=== PATIENT | female | born 1985 | race Caucasian/White ===

== ENCOUNTER 2016-09-29 17:00 | Inpatient (IN) | payer BC ==
[2016-09-29] MEDS ORDERED: LR 500 ML IV PRN (18:27)
[2016-09-29] MEDS ORDERED: ZOLPIDEM TARTRATE 5 MG TAB PO PRN (18:28)
[2016-09-29] MEDS ORDERED: AMPICILLIN SODIUM 2 GM in NS 100 ML IV ONE (18:29)
[2016-09-29] MEDS ORDERED: MINERAL OIL 60 ML OIL TP PRN (18:29)
[2016-09-29] MEDS ORDERED: LR 1,000 ML IV PRN (18:29)
[2016-09-29] MEDS ORDERED: LIDOCAINE 1% 30 ML SDV SC PRN (18:29)
[2016-09-29] MEDS ORDERED: OXYTOCIN/RINGERS LACTATE 1,000 ML IV PRN (18:29)
[2016-09-29] MEDS ORDERED: TERBUTALINE SULFATE 1 MG/ML VIAL IV PRN (18:29)
[2016-09-29] MEDS ORDERED: OXYTOCIN/RINGERS LACTATE 500 ML IV SCH (18:30)
--- NOTE | 2016-09-29 19:08 | GHP ---
[f rep st] PREOP HISTORY AND PHYSICAL DATE OF ADMISSION: 09/29/2016 ADMISSION DIAGNOSES: 1. Intrauterine at 40-2/7 weeks' gestation. 2. Scheduled induction of labor for post dates. INDICATIONS: Patient is a 31-year-old, 3, para 0-0-2-0, who is 40-2/7 weeks' gestation. Pat ient conceived by IVF. She is dated by embryo transfer. Her estimated date of confinement is 2015. Patient initially received care in [place] and then transferred to [facility] at 22 weeks. The was initially di/di twins and had a spontaneous reduction to a singl eton . Patient presents this evening for a Pichardo bulb placement. Her cervix is 1 cm dilate d, 70% effaced, and -2 station. After Pichardo bulb placement, patient was uncomfortable and is conside ring staying overnight until induction in the morning. MEDICAL HISTORY: Significant for insulin resistance, hypothyroidism, and infertility. MEDICATIONS: vitamins, metformin, Synthroid, iron. SURGICAL HISTORY: [place] tooth extraction, D and C x2, egg retrieval. ALLERGIES: No known drug allergies. SOCIAL HISTORY: The patient is . She lives with her . She denies tobacco, alcohol, o r drug use. FAMILY MEDICAL HISTORY: Noncontributory. 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 Irregular periods. She is a 3, para 0-0-2-0. In 08/2014, she had a missed at 5 weeks. Patient conceived that with Clomid. She had D and C in 08/2015. She had a D and C for an 8-week missed that was conceived by IVF. Current pr egnancy was conceived with IVF and was initially di/di twins that spontaneously reduced to a singleto n . Patient denies any history of any abnormal Pap smears or sexually transmitted diseases. PHYSICAL EXAMINATION: VITAL SIGNS: Stable. GENERAL APPEARANCE: Alert and oriented x3. HEART: Ra te is regular-regular. LUNGS: Clear to auscultation bilaterally. ABDOMEN: Gravid, nondistended, a nd nontender. EXTREMITIES: Reveal no calf tenderness or edema. PELVIC: 1 cm dilated, 70% effaced, and -2 station. heart tracing is category 1. Patient is having contractions every 2 minutes; however, she is not feeling them. is in the vertex presentation. LABORATORY DATA: Patient's labs: Blood type A positive, antibody screen negative. Rubella is unknown and we will check the labs for that. GBS is positive. HBsAg negative. HIV negative. H er 50 g glucose was 108. ASSESSMENT/PLAN: A 31-year-old, 3, para 0-0-2-0, at 40-2/7 weeks' gestation here for electiv e induction of labor. Patient had a Pichardo bulb placed and will likely stay overnight for Pitocin induction in the morning. /[id number]/MODL
[2016-09-29] MEDS ORDERED: ACETAMINOPHEN 325 MG TAB PO PRN (19:40)
[2016-09-29] MEDS ORDERED: CALCIUM CARBONATE 500 MG CHEWABLE TAB PO PRN (19:41)
[2016-09-30] MEDS ORDERED: LEVOTHYROXINE 75 MCG TAB PO SCH (06:00)
[2016-09-30] MEDS ORDERED: AMPICILLIN SODIUM 2 GM/10 ML VIAL ONE (06:00)
[2016-09-30] MEDS ORDERED: AMPICILLIN SODIUM 2 GM in NS 100 ML IV ONE (06:00)
[2016-09-30] MEDS ORDERED: OXYTOCIN/RINGERS LACTATE 500 ML IV SCH (06:00)
[2016-09-30] MEDS ORDERED: NS 100 ML BAG (MINI-BAG) IV ONE (06:01)
[2016-09-30 06:47] LABS: % IMMATURE GRANULYOCYTES 0.6 % (0.0-1.1); ABSOLUTE IMMATURE GRANULOCYTES 0.07 10^3/uL (0.00-0.10); ADD DIFF? NO; ADD MORPH? NO; ADD SCAN? NO; ATYPICAL LYMPHOCYTE FLAG 0 (0-99); FRAGMENT RBC FLAG 0 (0-99); HEMATOCRIT 40.8 % (38.0-47.0); HEMOGLOBIN 13.9 g/dL (12.6-16.3); LEFT SHIFT FLG 10 (0-99); LIPEMIA HEMOLYSIS FLAG 90 (0-99); MEAN CELL HEMOGLOBIN 29.7 pg (27.9-34.1); MEAN CELL HEMOGLOBIN CONCENTR. 34.1 g/dL (32.4-36.7); MEAN CELL VOLUME 87.2 fL (81.5-99.8); MEAN PLATELET VOLUME 10.7 fL (8.7-11.7); PLATELET CLUMPS FLAG 0 (0-99); PLATELET COUNT 188 10^3/uL (150-400); RED BLOOD CELL COUNT 4.68 10^6/uL (4.18-5.33); RED CELL DISTRIBUTION WIDTH 13.1 % (11.5-15.2)
[2016-09-30] MEDS: AMPICILLIN SODIUM 1 GM in NS 100 ML IV SCH ×4 (06:49→17:47)
--- NOTE | 2016-09-30 08:33 | OBPROG ---
OBG Progress Note Assessment/Plan: Assessment: cat 2 fhr pain minimal vidales bulb out with traction + bloody show gbs positive ampicillin begun at 0600 pitocin per protocol Plan:pitocin per protocol 09/30/16 08:31 Subjective: Denies pain. Discussed epidural eduction. Food intake. Pitocin. Monitoring. Contractions irregular Objective: 09/29/16 06:30 Patient ABO/Rh A POSITIVE 09/29/16 06:30 - SVE Dilation (cm): 4 Effacement (%): 80 Station: -1 Current Contraction Pattern: Regular FHR (bpm): 155 FHR Pattern Variability: Moderate FHR Category: 2 Membranes: Intact - Physical Exam General Appearance: WD/WN, alert, no apparent distress Respiratory: chest non-tender, lungs clear, normal breath sounds Cardiac/Chest: regular rate, rhythm Abdomen: normal bowel sounds Membranes: Intact Extremities: normal range of motion, Lukas's sign (negative bilaterlally/ dtrs2 + bilaterally) DTR- Lower Extremities: Knee (R): 1+, Knee (L): 1+ Skin: normal color, warm/dry Neuro/Psych: no motor/sensory deficits, alert, normal mood/affect, oriented x 3 ICD10 Worksheet Patient Problems: Problems Problem Status Diagnosed IOL postdates Acute
[2016-09-30] MEDS ORDERED: LEVOTHYROXINE 50 MCG TAB PO SCH (09:00)
[2016-09-30] MEDS: metFORMIN HCL 500 MG TAB PO SCH ×2 (09:45→18:57)
[2016-09-30] MEDS ORDERED: AMMONIA AROMATIC 1 EACH AMP IH ONE (10:42)
[2016-09-30] MEDS ORDERED: TERBUTALINE SULFATE 1 MG/ML VIAL ONE (10:42)
[2016-09-30] MEDS ORDERED: MISOPROSTOL 200 MCG TAB ONE (10:43)
[2016-09-30] MEDS ORDERED: OXYTOCIN 10 UNIT/ML VIAL ONE (10:43)
[2016-09-30] MEDS ORDERED: LIDOCAINE 1% 30 ML SDV ONE (10:44)
[2016-09-30] MEDS ORDERED: ONDANSETRON 4 MG/2 ML VIAL IVP PRN (12:39)
[2016-09-30] MEDS ORDERED: NALOXONE HCL 0.4 MG/ML INJ IVP PRN (12:39)
[2016-09-30] MEDS ORDERED: PHENYLEPHRINE HCL 100 MCG/ML SYR IVP PRN (12:39)
[2016-09-30] MEDS ORDERED: fentaNYL 100 MCG/2 ML INJ ONE ×3 (12:56→21:08)
[2016-09-30] MEDS ORDERED: LIDOCAINE 2% 5 ML SDV ONE (12:57)
[2016-09-30] MEDS ORDERED: LR 500 ML IV SCH (13:00)
[2016-09-30] MEDS ORDERED: fentaNYL 2MCG/ML/BUP 0.1% RTU 100 ML EP SCH (13:00)
[2016-09-30] MEDS ORDERED: fentaNYL 100 MCG/2 ML INJ IV ONE (13:30)
--- NOTE | 2016-09-30 13:30 | OBPROG ---
OBG Progress Note Assessment/Plan: Assessment: cat 2 fhr pain minimal change in cervix 4-5/80/-2 cephalic arom clear fluid + bloody show adequete treatment of gbs pitocin per protocol at 14 decreased to 10 mu Plan:pitocin per protocol/ epidural at patient request 09/30/16 08:31 09/30/16 13:25 Subjective: Request for epidural. Need for c/s in another room. fentanyl for pain relief in the meantime. Requesting epidural for pain relief attempting to get second anesthesiologist Objective: 09/29/16 06:30 Patient ABO/Rh A POSITIVE 09/29/16 06:30 - SVE Dilation (cm): 4 Current Contraction Pattern: Regular FHR (bpm): 135 FHR Pattern Variability: Moderate FHR Category: 2 Membranes: AROM Amniotic Fluid Color: Clear ICD10 Worksheet Patient Problems: Problems Problem Status Diagnosed IOL postdates Acute
[2016-09-30] MEDS ORDERED: fentaNYL 100 MCG/2 ML INJ IVP ONE (14:30)
--- NOTE | 2016-09-30 17:23 | OBPROG ---
OBG Progress Note Assessment/Plan: Assessment: cat 2 fhr pain minimal after epidural comfortable now previous fentanyl x2 until epidural available for pain relief change in cervix 7/100/0 cephalic arom clear fluid + bloody show adequete treatment of gbs pitocin restarted iupc plced to allow for greater accuracy with pitocin education on epidural and pain relief as progressing education on iupc placement patient and ok with pain relief [id number] mg po temp 37.6 Plan:pitocin per protocol/ epidural working well for pain relief 09/30/16 08:31 09/30/16 13:25 09/30/16 17:20 Objective: 09/29/16 06:30 Patient ABO/Rh A POSITIVE 09/29/16 06:30 Current Contraction Pattern: Regular FHR (bpm): 150 FHR Pattern Variability: Moderate FHR Category: 2 Amniotic Fluid Color: Blood Tinged ICD10 Worksheet Patient Problems: Problems Problem Status Diagnosed IOL postdates Acute
[2016-09-30] MEDS ORDERED: ACETAMINOPHEN 500 MG TAB PO ONE (18:00)
[2016-09-30] MEDS ORDERED: GENTAMICIN 80 MG/NACL 100 ML IV ONE (19:00)
[2016-09-30] MEDS ORDERED: LIDO/EPI 2% **for epidural** 20 ML SDV ONE (21:09)
[2016-09-30] MEDS ORDERED: CITRIC ACID/SODIUM CITRATE 30 ML UDCUP ONE (21:09)
[2016-09-30] MEDS ORDERED: CEFAZOLIN 2 GM/DEXTROSE/100 ML BAG IV ONE (21:09)
[2016-09-30] MEDS ORDERED: OXYTOCIN 100 UNITS/10 ML VIAL ONE (21:12)
[2016-09-30] MEDS ORDERED: morphINE PF 5 MG/10 ML INJ ONE (21:13)
[2016-09-30] MEDS ORDERED: ONDANSETRON 4 MG/2 ML VIAL ONE (21:18)
[2016-09-30] MEDS ORDERED: METHYLERGONOVINE MAL 0.2 MG/ML INJ ONE (21:28)
[2016-09-30] MEDS ORDERED: MEPERIDINE 25 MG/ML SYR ONE (21:38)
[2016-09-30 21:47] LABS: BASE EXCESS CORD -11.6 mEq/L (-13.6--3.2); PH ARTERIAL CORD BLOOD 7.14 (7.10-7.37)
[2016-09-30 21:50] LABS: PH VENOUS CORD BLOOD 7.14 (7.20-7.42)
[2016-09-30] MEDS ORDERED: DOCUSATE SODIUM 100 MG CAP PO PRN (22:20)
[2016-09-30] MEDS ORDERED: PROMETHAZINE HCL 25 MG/ML VIAL IVP PRN (22:20)
[2016-09-30] MEDS ORDERED: POLYETHYLENE GLYCOL 3350 17 GM PKT PO PRN (22:21)
[2016-09-30] MEDS ORDERED: LACTULOSE 20 GM/30 ML UDCUP PO PRN (22:21)
[2016-09-30] MEDS ORDERED: MAGNESIUM HYDROXIDE 30 ML UDCUP PO PRN (22:21)
[2016-09-30] MEDS ORDERED: BISACODYL 10 MG SUPP PR PRN (22:21)
--- NOTE | 2016-09-30 22:25 | OBPROC ---
- Delivery Pre-op Diagnoses: IUP @ 40 12/02, arrest of descent, failed vacuum and intolerance to labor Post-op Diagnoses: same Procedure: Primary Surgeon: Tri Ragland Staple Side Laster: Christie Gurrola Anesthesiologist: Leslie Bland Motor Room Controller/DOOR WORKER: Anna Vee Anesthesia: Epidural Complications: None Findings: normal uterus, tubes and ovaries, baby in OP presentation Specimen(s)/Path: Placenta IV Fluid (ml): 2,000 EBL: 800 Cord Gases: Cord Gases Cord Blood PCO2 54.0 mmHg (37-60) 09/30/16 21:30 Cord Base Excess -11.6 mEq/L (-13.6--3.2) 09/30/16 21:30 Cord ABG pH 7.14 (7.10-7.37) 09/30/16 21:30 Cord VBG pH 7.14 (7.20-7.42) L 09/30/16 21:30 - [place] Info A Delivery Date: 09/30/16 Delivery Time: 21:39 Sex of Infant: Male Weight (gm): 3218 g Score (1 Min): 5 Score (5 Min): 7
[2016-09-30] MEDS ORDERED: fentaNYL 100 MCG/2 ML INJ IVP PRN (22:30)
[2016-09-30] MEDS ORDERED: MEPERIDINE 25 MG/ML SYR IVP PRN (22:30)
[2016-09-30] MEDS ORDERED: KETOROLAC 30 MG/1 ML SDV ONE (23:31)
[2016-09-30] MEDS: KETOROLAC 30 MG/1 ML SDV IVP PRN (23:34)
--- NOTE | 2016-10-01 00:44 | GOP ---
[f rep st] OPERATIVE REPORT DATE OF OPERATION: 09/30/2016 SURGEON: Tri Ragland MD AGITATOR OPERATOR: Christie Gurrola, certified nurse entry level electrical engineer. ANESTHESIA: Dr. Casye Day; epidural anesthesia. PREOPERATIVE DIAGNOSIS: Intrauterine at 40-3/7th weeks gestation with elective induction o f labor for arrest of descent, failed vacuum and intolerance to labor. POSTOPERATIVE DIAGNOSIS: Intrauterine at 40-3/7th weeks gestation with elective induction of labor for arrest of descent, failed vacuum and intolerance to labor. PROCEDURE PERFORMED: Primary lower transverse section. FINDINGS: Viable male, Apgars of 5 and 7, weight of 3218 g, arterial pH and venous pH were 7.14, pCO 2 was 54, base excess was -11.6. ESTIMATED BLOOD LOSS: For the procedure was 800 cc. INDICATIONS: Lizzy is a 31-year-old, 3, para 0-0-2-0, who is 40-3/7th weeks gestation admi tted for elective induction of labor. She was admitted on the and had a Pichardo bulb placed on the evening of the . On the morning of the 3rd, her cervix was 4 cm. She was started on Pitocin. S he progressed well, had artificial rupture of membranes for clear fluid. Had an epidural and Pitocin . There were periods of variable deceleration and decreased variability but overall baby was r eassuring. Pitocin was gradually dosed appropriately and patient became fully dilated. When patient was noted to be fully dilated and at +2 station, baby had a deceleration to the 60s that lasted appr oximately 5 minutes. At this time we tried a vacuum extraction. The patient had good pushing effort s, the baby had good recovery after attempted vacuum. heart tones were in the 120s to 140s, mo derate variability, positive accels, reactive, category 1 and we decided to let the patient proceed w ith pushing. The patient had pushed for an hour and a half, had attempt to assist with the vacuum, h ad 7 pulls with 3 pop-offs and eventually the decision was made to proceed with section sangeetha use of arrest of descent. Fetus generally did well during the pushing efforts but initially in the o perating room heart tones were in the 60s, had a deep variable deceleration, recovered to the 1 20s. The patient was consented for the procedure. She understood the risks and benefits. The risks included bleeding, infection, damage to internal organs, uterus, tubes, ovaries, bowel, bladder, ner ves, blood vessels, ureters, risk of injury, risk of hemorrhage requiring blood transfusion, hy sterectomy, or . The patient understood these risks, benefits, and agreed to proceed. DESCRIPTION OF PROCEDURE: The patient was taken the operating room. Her epidural was dosed and foun d to be adequate. She was prepped and draped in the dorsal supine position with a leftward tilt and a Pichardo catheter was placed in her bladder. After adequate anesthesia was assured, a transverse skin incision was made with a scalpel and the incision was carried down to the underlying layer of fascia with the Bovie. The fascia was incised in the midline. Fascial incision was extended laterally wit h Hudson scissors. The superior aspect of the fascial incision was grasped with Penny clamps, elevate d, and the rectus muscles were dissected off sharply. Inferior aspect of the fascial incision was gr asped with Penny clamps, elevated, and the rectus muscles were dissected off sharply. Rectus muscle s were in the midline. Peritoneum was entered sharply. Peritoneal incision was extended s uperiorly and inferiorly with good visualization of bladder. Bladder blade was inserted. The vesico uterine peritoneum was grasped with the pickups, entered sharply with Metzenbaum scissors. The incis ion was extended laterally and a bladder flap was created digitally. The uterus was incised with a k nife. There was clear fluid upon entry of the uterine cavity. The was in direct OP presentat ion and was delivered atraumatically. The cord was clamped and cut. Infant was handed off to the [facility] nurse practitioners. Cord blood gas, as well as cord bloods were sent. The placenta was removed manually. The uterus was exteriorized, cleared of all clots and debris. The uterine inc ision was repaired with 0 Vicryl in a running, locked fashion. Second imbricating layer of suture wa s performed with 0 Vicryl and good hemostasis was assured. The uterus was returned to the abdomen. Gutters were cleared of all clots and debris. The rectus muscles were approximated with 2-0 Vicryl i n an inverted mattress fashion. Fascia was closed with #1 Vicryl in a running fashion. Subcutaneous layer was closed with 2-0 Vicryl and the skin was closed with 4-0 Vicryl. The patient tolerated the procedure well. Sponge, lap, needle, and instrument counts were correct x2. [facility] in good condition. IV FLUIDS: 2000 cc. URINE OUTPUT: 100 cc. /[id number]/MODL
[2016-10-01] MEDS: HYDROCODONE/APAP 5/325 TAB PO PRN ×5 (01:55→20:28)
[2016-10-01] MEDS: AMPICILLIN SODIUM 1 GM in NS 100 ML IV SCH ×3 (02:28→07:57)
[2016-10-01] MEDS: metFORMIN HCL 500 MG TAB PO SCH ×3 (02:30→15:47)
[2016-10-01] MEDS ORDERED: ceFAZolin 2 GM/DEXTROSE 100 ML IV ONE (02:32)
[2016-10-01] MEDS ORDERED: LR 500 ML IV ONE (02:32)
[2016-10-01] MEDS ORDERED: LR 1,000 ML IV SCH (03:00)
[2016-10-01] MEDS: KETOROLAC 30 MG/1 ML SDV IVP PRN ×3 (05:41→17:59)
[2016-10-01] MEDS ORDERED: LEVOTHYROXINE 75 MCG TAB PO SCH (06:00)
--- NOTE | 2016-10-01 08:09 | OBPROG ---
OBG Progress Note Assessment/Plan: Assessment: 1) s/p primary LTCS secondary to failed vacuum and intolerance to labor POD # 1 - pt is stable 2) Anemia - pt is asymptomatic 3) s/p chorio - afebrile, s/p abx Plan: Continue routine post-op care Encourage ambulation and IS Pt may shower later today; dressing to be removed around 2200 Will start iron bid 10/01/16 08:12 Subjective: Pt seen and examined. Doing well, she is sore. Pain is well controlled with Toradol. Pt has not been OOB yet, sandy clears, vidales in place, no flatus. Denies any f/c/n/v/CP or SOB. Moderate lochia. Baby boy is in NICU. Objective: 10/01/16 06:05 Patient ABO/Rh A POSITIVE 09/29/16 06:30 Uterine Position/Fundal Height: Umbilicus -1 Uterine Tone: Firm - Physical Exam General Appearance: WD/WN, alert, no apparent distress Respiratory: lungs clear, normal breath sounds Cardiac/Chest: regular rate, rhythm Abdomen: normal bowel sounds, soft, incision (C/D/I), dressing (dry, intact), other (appropriate tenderness) Genitourinary: lochia (moderate) Extremities: normal inspection Neuro/Psych: alert, normal mood/affect, oriented x 3 ICD10 Worksheet Patient Problems: Problems Problem Status Diagnosed Failed vacuum extraction delivery Acute intolerance to labor, delivered, current hospitalization Acute IOL postdates Acute Status post primary low transverse section Acute - ICD10 Problem Qualifiers (1) Status post primary low transverse section (2) Failed vacuum extraction delivery (3) intolerance to labor, delivered, current hospitalization
[2016-10-01] MEDS: SENNOSIDES/DOCUSATE SODIUM TAB PO SCH ×2 (08:15→20:58)
--- NOTE | 2016-10-01 09:56 | SOAPPROG ---
SOAP Progress Note Assessment/Plan: Assessment: POD #1 s/p C/S performed under lumbar epidural analgesia. Epidural morphine was administered at the end of the surgery prior to removing the epidural catheter for extended POPC. L calcaneal region dysethesia most likely secondary to femoral nerve entrapment during protracted attempt at vaginal delivery. Overall, pt doing well. Plan: Continue current medical mgmt. Pt. instructed to inform OB and myself if L calcaneal region not improving. 10/01/16 09:51 Subjective: Pt. denies N/V, pruritus, back pain, motor weakness. Admits moderate pain that is currently well-controlled. Admits L calcaneal region feels "tight". Denies pain, numbness in that region. Objective: Vital Signs Temp Pulse Resp BP Pulse Ox 37.1 C 84 16 93/67 L 100 10/01/16 08:15 10/01/16 08:15 10/01/16 08:15 10/01/16 08:15 10/01/16 08:15 Laboratory Results 10/01/16 06:05 09/30/16 10/01/16 10/02/16 05:59 05:59 05:59 Intake Total 5888 Output Total 1456 1050 Balance -800 -1050 Physical Exam - Physical Exam General Appearance: WD/WN, alert, no apparent distress ICD10 Worksheet Patient Problems: Problems Problem Status Diagnosed Failed vacuum extraction delivery Acute intolerance to labor, delivered, current hospitalization Acute IOL postdates Acute Status post primary low transverse section Acute
[2016-10-01] MEDS: SIMETHICONE 80 MG TAB CHEW PO PRN ×2 (14:42→20:54)
[2016-10-01] MEDS: FERROUS SULFATE 325 MG TAB PO SCH (20:53)
[2016-10-02] MEDS: IBUPROFEN 600 MG TAB PO PRN ×3 (00:02→13:26)
[2016-10-02] MEDS: HYDROCODONE/APAP 5/325 TAB PO PRN ×4 (00:02→13:26)
[2016-10-02] MEDS: metFORMIN HCL 500 MG TAB PO SCH ×2 (00:35→15:38)
[2016-10-02] MEDS ORDERED: LEVOTHYROXINE 50 MCG TAB PO SCH (06:00)
--- NOTE | 2016-10-02 09:19 | OBPROG ---
OBG Progress Note Assessment/Plan: Assessment: 31 y/o POD #1.5 s/p LTCS secondary to arrest of descent, failed vacuum and intolerance to labor Plan: We will transfer patient to [facility] post unit with Dr. Marissa Bruce attending for post care. 10/02/16 09:19 Subjective: Pt is doing ok this am. She has good pain control with po meds and is beginning to ambulate with assistance to void. Her lochia is min and she is tolerating reg diet. She is stressed because she wants to get transferred to [facility] to be with her baby who was transferred yesterday because he began having seizures. Objective: 10/01/16 06:05 Patient ABO/Rh A POSITIVE 09/29/16 06:30 Temp Pulse Resp BP Pulse Ox 36.5 C 80 18 84/50 L 97 10/02/16 05:02 10/02/16 05:02 10/02/16 05:02 10/02/16 05:02 10/01/16 21:30 Uterine Position/Fundal Height: Umbilicus -2 Uterine Tone: Firm - Physical Exam General Appearance: WD/WN, alert, no apparent distress Neck: non-tender, full range of motion, supple Respiratory: chest non-tender, lungs clear, normal breath sounds Cardiac/Chest: regular rate, rhythm Abdomen: normal bowel sounds, incision (c/d/i) Extremities: swelling (no), Lukas's sign (neg) ICD10 Worksheet Patient Problems: Problems Problem Status Diagnosed Failed vacuum extraction delivery Acute intolerance to labor, delivered, current hospitalization Acute IOL postdates Acute Status post primary low transverse section Acute
[2016-10-02] MEDS: FERROUS SULFATE 325 MG TAB PO SCH (13:26)
[2016-10-02 15:15] VITALS: BP 103/60; PULSE 83; RESP 18; TEMP 98.2; O2SAT 97
[2016-10-02] MEDS: SENNOSIDES/DOCUSATE SODIUM TAB PO SCH (15:39)
== END 2016-10-02 13:30 | disposition designated cancer center or children's hospital (05) | DRG 765 ==
LOC: FLD 17:00 → OBSVTOIN 17:00
PROVIDERS: ADMIT Obstetrics & Gynecology; ATTEND Obstetrics & Gynecology
PROC: 0U7C7ZZ Dilation of Cervix, Via Natural or Artificial Opening (ICD-10-PCS; 2016-09-29)
PROC: 10D07Z6 Extraction of Products of Conception, Vacuum, Via Natural or Artificial Opening (ICD-10-PCS; principal; 2016-09-30)
PROC: 10D00Z1 Extraction of Products of Conception, Low, Open Approach (ICD-10-PCS; principal; 2016-09-30)
PROC: 10907ZC Drainage of Amniotic Fluid, Therapeutic from Products of Conception, Via Natural or Artificial Opening (ICD-10-PCS; 2016-09-30)
PROC: 10H07YZ Insertion of Other Device into Products of Conception, Via Natural or Artificial Opening (ICD-10-PCS; 2016-09-30)
DX: O76 Abnormality in fetal heart rate and rhythm complicating labor and delivery (principal); O32.4XX2 Maternal care for high head at term, fetus 2; O66.5 Attempted application of vacuum extractor and forceps; O48.0 Post-term pregnancy; O99.03 Anemia complicating the puerperium; O99.355 Diseases of the nervous system complicating the puerperium; G57.22 Lesion of femoral nerve, left lower limb; O09.813 Supervision of pregnancy resulting from assisted reproductive technology, third trimester; O31.1 Continuing pregnancy after spontaneous abortion of one fetus or more; O99.89 Other specified diseases and conditions complicating pregnancy, childbirth and the puerperium; E88.81 Metabolic syndrome and other insulin resistance; O99.283 Endocrine, nutritional and metabolic diseases complicating pregnancy, third trimester; E03.9 Hypothyroidism, unspecified; O99.824 Streptococcus B carrier state complicating childbirth; Z3A.40 40 weeks gestation of pregnancy; Z37.0 Single live birth
CPT/HCPCS: G0463; J0290; J0690; J1580; J1885; J2210; J2274; J2370; J2405; J2590; J3010; J3105

== ENCOUNTER → 2017-02-05 | Outpatient (CLI) | payer BC | LOC: BMCIMAGING 13:58 | PROVIDERS: ATTEND Internal Medicine Rheumatology | DX: M47.896 Other spondylosis, lumbar region (principal) ==

== ENCOUNTER 2017-04-21 17:13 | Emergency (ER) | payer BC ==
--- NOTE | 2017-04-21 17:47 | EDPHY ---
H & P Time Seen by Provider: 04/21/17 17:30 HPI/ROS: Chief complaint. Fever HPI. 31-year-old female presents emergency department with fever that began today. Fever at home to 101 degrees. She has achy and has a headache. Has some mild low abdominal discomfort. Some tightness in her throat. No cough. She does have chills. No vomiting or diarrhea. No urinary symptoms. She has a 6 to have month old child but is not breast feeding and breasts are not red or painful. She did travel to [place] 10 days ago but otherwise no sick contacts. ROS Constitutional. Fever and chills Eyes. no problems with vision ENT. no sore throat, no nasal drainage Cardiovascular. no chest pain Respiratory. no shortness of breath, no cough Abdominal. Mild low abdominal pain . no problems urinating MS. Myalgias Skin. no rash Lymph. no swollen glands Neuro. Headache Past Medical/Surgical History: Hypothyroid, ankylosing spondylosis, all polycystic syndrome, hypothyroid Social History: , nonsmoker, no alcohol Smoking Status: Never smoked Physical Exam: General Appearance: Alert well-developed female moderate distress vital signs significant for heart rate of 122 Eyes: Pupils equal and round no pallor or injection. ENT, tympanic membranes are normal. Pharynx without injection. Mucous membranes are moist Respiratory: There are no retractions, lungs are clear to auscultation. Cardiovascular: Regular rate and rhythm. Gastrointestinal: Abdomen is soft with mild suprapubic tenderness. No flank tenderness. No masses or bowel sounds Neurological: Awake and alert, sensory and motor exams grossly normal. Skin: Warm and dry, no rashes. Musculoskeletal: Neck is supple nontender. Extremities symmetrical, full range of motion. Psychiatric: Patient is oriented X 3, there is no agitation. Constitutional: Initial Vital Signs Temperature (C) 36.8 C 04/21/17 17:17 Heart Rate 122 H 04/21/17 17:17 Respiratory Rate 16 04/21/17 17:17 Blood Pressure 107/66 04/21/17 17:17 O2 Sat (%) 93 04/21/17 17:17 O2 Delivery Mode Room Air Allergies/Adverse Reactions: No Known Allergies Allergy (Verified 09/29/16 17:40) Home Medications: Medication Instructions Recorded Levothyroxine [Synthroid 50 mcg 50 mcg PO Q2D@06 08/11/16 (*)] Levothyroxine [Synthroid 75 mcg 75 mcg PO Q2D@06 08/11/16 (*)] metFORMIN HCL [Metformin HCl] 500 mg PO TID 08/11/16 Medical Decision Making ED Course/Re-evaluation: Re-evaluation at 6:10 p.m.. Patient declines chest x-ray lab work urinalysis. She would like to go home and treat her fever an if worse come back or follow up with her regular physician. I encouraged her to return at any point for further evaluation as well as follow up with her regular physician. They expressed understanding and agreement Differential Diagnosis: I have considered viral syndrome, pneumonia, mastitis, urinary tract infection Departure - Departure Disposition: Home, Routine, Self-Care Clinical Impression: Fever Qualifiers: Fever type: unspecified Qualified Code(s): R50.9 - Fever, unspecified Condition: Good Instructions: Fever in Adults (ED) Additional Instructions: Easy activity. Drink plenty of fluids and stay hydrated. Tylenol 1000 mg every 6 hours, ibuprofen 600 mg every 6 hours. May alternate these every 3 hours. Return for worsening symptoms. Recheck in 1 day if not improving Referrals: NONE *PRIMARY CARE P,. [Primary Care Provider] - As per Instructions
[2017-04-21] MEDS ORDERED: NS 1,000 ML IV ONE ×2 (18:00)
[2017-04-21] MEDS ORDERED: IBUPROFEN 600 MG TAB PO ONE (18:01)
[2017-04-21 18:31] VITALS: BP 112/62; PULSE 111; RESP 18; TEMP 98.4; O2SAT 96
== END 2017-04-21 18:31 | disposition home or self-care (01) ==
DX: R50.9 Fever, unspecified (principal)